=== PATIENT | male | born 1995 | race African-American/Black ===

== ENCOUNTER 2017-11-29 04:33 | Emergency (ER) | payer SELFPAY ==
[~2017-11-29] VITALS: Ht 177.8 cm; Wt 122.5 kg
[2017-11-29 04:41] VITALS: BP 162/69
--- NOTE | 2017-11-29 04:59 | PHYS DOC ---
Adult General Chief Complaint Chief Complaint: MULTIPLE COMPLAINTS HPI HPI Patient is a 22 year old man who presents with depression and anxiety The patient got in argument with the mother of his child. Afterwards, he got worked up and started crying. He had depressive thoughts of his friends who were murdered and his relatives who just . He does have depression that he' s noted for last few months, though he has no thoughts of hurting himself or others. He also has anxiety. His stepmother is a nurse who took his blood pressure last week and noted it was elevated. He is concerned he has elevated blood pressure. He had lightheadedness which occurred when he was crying and has now resolved. He feels back to normal. He occasionally smokes marijuana. He denies any cigarette use. Review of Systems Review of Systems Constitutional: Denies fever or chills Eyes: Denies change in visual acuity, redness, or eye pain HENT: Denies nasal congestion or sore throat Respiratory: Denies cough or shortness of breath Cardiovascular: Denies chest pain or palpitations GI: Denies abdominal pain, nausea, vomiting, bloody stools or diarrhea : Denies dysuria or hematuria Musculoskeletal: Denies back pain or joint pain Integument: Denies rash or skin lesions Neurologic: Denies headache, focal weakness or sensory changes Endocrine: Denies polyuria or polydipsia All other systems were reviewed and found to be within normal limits, except as documented in this note. Allergies Allergies Allergies Coded Allergies Type Severity Reaction Last Updated Verified No Known Drug Allergies 11/29/17 No Physical Exam Physical Exam Constitutional: Well developed, well nourished, no acute distress, non-toxic appearance. HENT: Normocephalic, atraumatic, bilateral external ears normal, oropharynx moist, no oral exudates, nose normal. Eyes: PERRLA, EOMI, conjunctiva normal, no discharge. Neck: Normal range of motion, no tenderness, supple, no stridor. Cardiovascular:Heart rate regular rhythm, no murmur Lungs & Thorax: Bilateral breath sounds clear to auscultation Abdomen: Bowel sounds normal, soft, no tenderness, no masses, no pulsatile masses. Skin: Warm, dry, no erythema, no rash. Back: No tenderness, no CVA tenderness. Extremities: No tenderness, no cyanosis, no clubbing, ROM intact, no edema. Neurologic: Alert and oriented X 3, paint mixer hand II-XII intact, normal motor function, normal sensory function, no focal deficits noted, gait normal Psychologic: Affect normal, judgement normal, mood normal. No SI or HI Current Patient Data Vital Signs Vital Signs Date Time Temp Pulse Resp B/P (MAP) Pulse Ox O2 Delivery O2 Flow Rate FiO2 11/29/17 04:41 98.0 97 20 162/69 (100) 100 Room Air 98.0 Lab Values Laboratory Tests Test 11/29/17 05:05 POC Hemoglobin 16.0 g/dL (14-18) POC Hematocrit 47 % (37-52) POC Sodium 141 mmol/L (135-145) POC Potassium 4.1 mmol/L (3.5-5.0) POC Chloride 105 mmol/L (98-110) POC Total CO2 24 mmol/L (23-32) Anion Gap 18 mmol/L (6-14) H POC Blood Urea Nitrogen 17 mg/dL (8-26) POC Creatinine 1.2 mg/dL (0.5-1.4) Glucose Level 99 mg/dL (70-99) POC Ionized Calcium ([place]) 1.22 mmol/L (1.13-1.32) Laboratory Tests 11/29/17 05:05 EKG EKG [] Radiology/Procedures Radiology/Procedures [] Course & Med Decision Making Course & Med Decision Making Pertinent Labs and Imaging studies reviewed. (See chart for details) Emergency Department Course Patient presents with depression and anxiety with elevated blood pressure DDx- Depression, hypertension, substance abuse The patient was stable in the ED with non emergent elevation of his blood pressure. Chem panel was unremarkable with normal serum creatinine. Patient had no thoughts of self harm or harm to others. I advised the patient follow-up with PCP for repeat blood pressure evaluation and outpatient behavioral health evaluation. Patient was advised to follow a low salt diet. Dragon Disclaimer Dragon Disclaimer This electronic medical record was generated, in whole or in part, using a voice recognition dictation system. Departure Departure Impression: Primary Impression: Depression Additional Impression: Uncontrolled hypertension Disposition: 01 HOME, SELF-CARE Condition: STABLE Referrals: NO PCP (PCP) JOSÉ MANUEL CRABTREE MD Follow-up in 2 days for further evaluation Patient Instructions: Depression, Adult, Hypertension Additional Instructions: Follow-up with: [facility] Address: [address] [place] [id number] Call in 2 days on Friday for further evaluation of your depression Problem Qualifiers Primary Impression: Depression Depression Type: major depressive disorder Major depression recurrence: unspecified whether recurrent Active/Remission status: currently active Psychotic features: without psychotic features DANIEL ALLRED MD Nov 29, 2017 04:59
[2017-11-29 05:09] LABS: CREATININE ISTAT 1.2 mg/dL (0.5-1.4); ION CA ISTAT 1.22 mmol/L (1.13-1.32); POTASSIUM ISTAT 4.1 mmol/L (3.5-5.0)
== END 2017-11-29 06:24 | disposition home or self-care (01) ==
LOC: ER 04:33
DX: F41.8 Other specified anxiety disorders (principal); F12.90 Cannabis use, unspecified, uncomplicated; R42 Dizziness and giddiness; I10 Essential (primary) hypertension
CPT/HCPCS: 36415; 80047; 85014; 85018; 99282